=== PATIENT | male | born 1990 | race Two or more races ===

== ENCOUNTER → 2019-11-30 | Outpatient (CLI) | payer OTHER ==
[~2019-11-30] MED LIST: CATAFLAN PO; TAMS0.4C PO
== END | disposition home or self-care (01) ==
LOC: RAD 13:41
PROVIDERS: ATTEND Urology
DX: N20.0 Calculus of kidney (principal)

== ENCOUNTER 2019-12-07 06:00 | Day surgery (SDC) | payer OTHER | END 2019-12-07 14:15 | disposition home or self-care (01) | LOC: CIR.AMB 06:00 | PROVIDERS: ATTEND Urology | DX: N20.1 Calculus of ureter (principal) ==

== ENCOUNTER 2019-12-14 11:19 | Outpatient (CLI) | payer OTHER | END 2019-12-14 11:42 | disposition home or self-care (01) | LOC: RAD 11:19 | PROVIDERS: ATTEND Urology | DX: N20.1 Calculus of ureter (principal) ==